=== PATIENT | male | born 1980 | race African-American/Black ===

== ENCOUNTER → 2018-09-28 | Outpatient (CLI) | payer OTHER ==
[~2018-09-28] MED LIST: CIPRO 500MG TA500 MG PO; LORTAB 5/500 501 TAB PO; NO HOME MEDICATIONS
== END ==
LOC: COL.RAD 08:00
DX: S22.42XA Multiple fractures of ribs, left side, initial encounter for closed fracture (principal); W19.XXXA Unspecified fall, initial encounter
CPT/HCPCS: Q9967

== ENCOUNTER 2019-06-09 21:40 | Emergency (ER) | payer BC ==
[~2019-06-09] VITALS: Ht 180.3 cm; Wt 93.2 kg
[2019-06-09 21:45] VITALS: BP 129/71; TEMP 97.7
[2019-06-09] MEDS ORDERED: CEPHALEXIN500 M1 PO (22:38)
[2019-06-09 22:46] VITALS: PULSE 81
== END 2019-06-09 22:46 | disposition home or self-care (01) ==
LOC: COL.ER 21:40
DX: S61.212A Laceration without foreign body of right middle finger without damage to nail, initial encounter (principal); S61.210A Laceration without foreign body of right index finger without damage to nail, initial encounter; S61.412A Laceration without foreign body of left hand, initial encounter; W26.0XXA Contact with knife, initial encounter

== ENCOUNTER → 2019-06-21 | Outpatient (CLI) | payer BC ==
[~2019-06-21] MED LIST changes: +CEPHALEXIN500 M1 PO
[2019-06-21 19:42] VITALS: BP 136/65; PULSE 96; TEMP 98.7
== END ==
LOC: COL.ER 19:36
DX: S61.012D Laceration without foreign body of left thumb without damage to nail, subsequent encounter (principal); X58.XXXD Exposure to other specified factors, subsequent encounter

== ENCOUNTER 2020-10-31 09:43 | Emergency (ER) | payer OTHER ==
[~2020-10-31] VITALS: Ht 180.3 cm; Wt 109.1 kg
[~2020-10-31 09:43] MED LIST changes: +FLEXERIL 1010 MG/TAB PO; +MOTRIN 800800 MG/TAB PO
[2020-10-31 09:48] VITALS: TEMP 98
[2020-10-31 10:33] LABS: BASO # 0.1 (0.0-0.2); BASO % 1.1 % (0.0-2.0); EOS # 0.2 (0.0-0.7); EOS % 2.3 % (0-4.0); GRAN # 3.4 (1.4-6.5); GRAN % 51.8 % (42.2-75.2); HEMATOCRIT 41.7 % (42.0-52.0); HEMOGLOBIN 13.8 g/dl (13.5-18.0); LYMPH % 30.9 % (20.0-51.0); MEAN CELL VOLUME 86 fl (80.0-100.0); MEAN CORPUSCULAR HEMOGLOBIN 28 pg (27.0-31.0); MEAN CORPUSCULAR HGB CONC 33 g/dl (33.0-37.0); MEAN PLATELET VOLUME 9.2 fl (7.4-10.4); MONO # 0.9 (0.1-0.6); MONO % 13.6 % (1.7-9.3); PLATELET COUNT 254 K/mm3 (130-400); RED BLOOD COUNT 4.88 M/mm3 (4.20-5.60); REDCELL DISTRIBUTION WIDTH-CV 13.5 % (11.5-14.5)
[2020-10-31 10:44] LABS: ALANINE AMINOTRANSFERASE 20 U/L (4-49); ALKALINE PHOSPHATASE 77 U/L (50-136); ANION GAP 6 mmol/L (7-16); AST,SGOT 28 U/L (15-37); BILIRUBIN,TOTAL < 0.1 mg/dL (0.0-1.0); BLOOD UREA NITROGEN 12 mg/dL (9-20); CALCIUM 9.1 mg/dL (8.4-10.2); CARBON DIOXIDE 26 mmol/L (22-30); CHLORIDE 107 mmol/L (98-107); CREATININE, serum 0.81 (0.66-1.25); GLUCOSE 91 mg/dL (74-106); POTASSIUM 4.1 mmol/L (3.4-5.0); SODIUM 139 mmol/L (137-145); TOTAL PROTEIN 7.5 gm/dL (6.4-8.2)
[2020-10-31 11:01] LABS: TROPONIN-I < 0.012 ng/mL (0.000-0.035)
[2020-10-31 12:55] VITALS: BP 141/99; PULSE 81
== END 2020-10-31 12:55 | disposition home or self-care (01) ==
LOC: COL.ER 09:43
PROVIDERS: Physician Assistant
DX: R07.9 Chest pain, unspecified (principal); B34.9 Viral infection, unspecified; F17.210 Nicotine dependence, cigarettes, uncomplicated; Z20.822 Contact with and (suspected) exposure to COVID-19
CPT/HCPCS: J1885; Q9967

== ENCOUNTER 2021-07-17 13:05 | Emergency (ER) | payer SELFPAY ==
[~2021-07-17] VITALS: Ht 180.3 cm; Wt 96.8 kg
[2021-07-17] MEDS ORDERED: AMOXICILLIN 50500 MG PO (14:03)
[2021-07-17] MEDS ORDERED: NORCO 325 MG-7.1 TAB PO (14:04)
[2021-07-17 14:27] VITALS: BP 124/69; PULSE 79; TEMP 98.4
== END 2021-07-17 14:28 | disposition home or self-care (01) ==
LOC: COL.ER 13:05
DX: K08.89 Other specified disorders of teeth and supporting structures (principal)
CPT/HCPCS: J1885

== ENCOUNTER 2021-11-06 12:19 | Emergency (ER) | payer SELFPAY ==
[~2021-11-06] VITALS: Ht 180.3 cm; Wt 95.5 kg
[~2021-11-06 12:19] MED LIST changes: +AMOXICILLIN 50500 MG PO; +NORCO 325 MG-7.1 TAB PO
[2021-11-06 12:35] VITALS: BP 145/94; TEMP 98.2
[2021-11-06 13:54] LABS: STREP SCREEN NEGATIVE
[2021-11-06 14:44] VITALS: PULSE 89
== END 2021-11-06 14:44 | disposition home or self-care (01) ==
LOC: COL.ER 12:19
PROVIDERS: Nurse Practitioner Family
DX: J06.9 Acute upper respiratory infection, unspecified (principal); F17.200 Nicotine dependence, unspecified, uncomplicated; Z20.822 Contact with and (suspected) exposure to COVID-19

== ENCOUNTER 2021-12-20 21:16 | Emergency (ER) | payer SELFPAY ==
[~2021-12-20] VITALS: Ht 180.3 cm; Wt 86.4 kg
[2021-12-20 21:19] VITALS: TEMP 97.2
[2021-12-20] MEDS ORDERED: AMOXICILLIN 8751 TAB PO (21:37)
[2021-12-20 22:35] VITALS: BP 140/75; PULSE 68
== END 2021-12-20 22:35 | disposition home or self-care (01) ==
LOC: COL.ER 21:16
DX: S81.852A Open bite, left lower leg, initial encounter (principal); F17.210 Nicotine dependence, cigarettes, uncomplicated; Z28.310 Unvaccinated for COVID-19; W54.0XXA Bitten by dog, initial encounter; Y93.K1 Activity, walking an animal